=== PATIENT | female | born 2000 | race Caucasian/White ===

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

== ENCOUNTER 2022-10-20 17:41 | Emergency (ER) | payer OTHER ==
[~2022-10-20] VITALS: Ht 162.6 cm; Wt 126.6 kg
[~2022-10-20 17:41] MED LIST changes: +AUGMENTIN 875-1 EACH PO; +IBUPROFEN600 MG PO
[2022-10-21 01:07] VITALS: BP 146/92
[2022-10-21] MEDS ORDERED: PRENATAL GUMMI1 EACH PO (22:42)
== END 2022-10-21 01:07 | disposition home or self-care (01) ==
LOC: ED 17:41
DX: O20.9 Hemorrhage in early pregnancy, unspecified (principal); Z3A.01 Less than 8 weeks gestation of pregnancy; Z79.899 Other long term (current) drug therapy
CPT/HCPCS: 36415; 76801; 76817; 80053; 81003; 84702; 84703; 85025; 86900; 86901; 99284 25

== ENCOUNTER 2022-10-21 22:10 | Emergency (ER) | payer OTHER ==
[~2022-10-21] VITALS: Ht 162.6 cm; Wt 127.0 kg
--- OUTSIDE RECORDS SUMMARY | ~2022-10-21 | XMS | Continuity of Care Document ---
Demographics + + + | Address | [address] | | | [place] [address] | + + + | Preferred Language | Unknown | + + + | Marital Status | Never | + + + | Sabianist Affiliation | Unknown | + + + | Race | White | + + + | Ethnic Group | Not or | + + + Author + + + | Author | [facility] | + + + | Organization | [facility] | + + + | Address | [address] [facility] [facility] | | | [place] [address] | + + + | Phone | | + + + Care Team Providers + + + + | Care Residential Finish Carpenter Name | Role | Phone | + + + + Unavailable | Unavailable | + + + + Unavailable | Unavailable | + + + + Allergies and Intolerances + + + + + | date | description | facility | type | + + + + + | (no date) | No Known Allergies | [facility] | (unknown) | | | | | | + + + + + Encounters No information. Functional Status No information. Immunizations + + + + | date | description | facility | + + + + | 2018-05-27 00:00 | Tdap | [facility] | + + + + Medications + + + + | date | description | facility | + + + + | 2013-05-24 00:00 | ONDANSETRON HCL | [facility] | + + + + | 2013-05-24 00:00 | NAPROXEN | [facility] | + + + + | 2022-10-21 00:00 | | [facility] | | | D-METHORPHAN/PE/ACETAMINOPH | | | | EN | | + + + + | 2018-05-27 00:00 | IBUPROFEN | [facility] | + + + + | 2022-10-21 00:00 | | [facility] | | | ASPIRIN/ACETAMINOPHEN/CAFFE | | | | INE | | + + + + | 2022-10-21 00:00 | ASPIRIN/CAFFEINE | [facility] | + + + + | 2022-10-21 00:00 | IBUPROFEN | [facility] | + + + + | 2018-05-27 00:00 | AMOXICILLIN/POTASSIUM CLAV | [facility] | | | | | + + + + Problems + + + + | date | description | facility | + + + + | 2016-01-31 00:00 | Encounter for medical | [facility] | | | screening examination | | + + + + | 2018-05-27 00:00 | Dog bite of upper | [facility] | | | extremity | | + + + + | 2022-10-21 00:00 | Hemorrhage in early | [facility] | | | | | + + + + Procedures No information. Results/Labs +--------+--------+ + +---------+--------+ + | test | date | author | facility | value | unit | | | | | | | | | interpreta | | | | | | | | tion | +--------+--------+ + +---------+--------+ + + + | Result panel 1 | + + + + + + +---------+ + + | (unknown) | (no date) | (unknown) | [facility] | [facility]units | (unknown) | | | [facility] | value) | unknown) | [facility] | | | | + + + + +---------+ + + + + | Result panel 2 | + + + + + + +---------+ + + | (unknown) | (no date) | (unknown) | [facility] (no | (units | (unknown) | | | | [facility] | value) | unknown) | | | | [facility] | | | | + + + + +---------+ + + + + | Result panel 3 | + + + + + + +---------+ + + | (unknown) | (no date) | (unknown) | [facility] (no | (units | (unknown) | | | | [facility] | value) | unknown) | | | | | | [facility] | | | | + + + + +---------+ + + + + | Result panel 4 | + + + + + + +---------+ + + | (unknown) | (no date) | (unknown) | [facility] (no | (units | (unknown) | | | | [facility] | value) | unknown) | | | | | | [facility] | | | | + + + + +---------+ + + + + | Result panel 5 | + + + + + + +---------+ + + | (unknown) | (no date) | (unknown) | [facility] (no | (units | (unknown) | | | | [facility] | value) | unknown) | | | | | [facility] | | | | + + + + +---------+ + + + + | Result panel 6 | + + + + + + +---------+ + + | (unknown) | (no date) | (unknown) | [facility] (no | (units | (unknown) | | | | | [facility] | value) | unknown) | | | | | | [facility] | | | | + + + + +---------+ + + + + | Result panel 7 | + + + + + + +---------+ + + | (unknown) | (no date) | (unknown) | [facility] (no | (units | (unknown) | | [facility] | [facility] | value) | unknown) | | | | | | [facility] | | | | + + + + +---------+ + + + + | Result panel 8 | + + + + + + +---------+ + + | (unknown) | (no date) | (unknown) | [facility] (no | (units | (unknown) | | | | | [facility] | value) | unknown) | | | | | | [facility] | | | | + + + + +---------+ + + + + | Result panel 9 | + + + + + + +---------+ + + | (unknown) | (no date) | (unknown) | [facility] (no | (units | (unknown) | | | | | [facility] | value) | unknown) | | | | | | [facility] | | | | + + + + +---------+ + + + + | Result panel 10 | + + + + + + +---------+ + + | (unknown) | (no date) | (unknown) | [facility] (no | (units | (unknown) | | | | | [facility] | value) | unknown) | | | | | | [facility] | | | | + + + + +---------+ + + + + | Result panel 11 | + + + + + + +---------+ + + | (unknown) | (no date) | (unknown) | [facility] (no | (units | (unknown) | | | | | [facility] | value) | unknown) | | | | | | [facility] | | | | + + + + +---------+ + + + + | Result panel 12 | + + + + + + +---------+ + + | (unknown) | (no date) | (unknown) | [facility] (no | (units | (unknown) | | | | | [facility] | value) | unknown) | | | | | | [facility] | | | | + + + + +---------+ + + + + | Result panel 13 | + + + + + + +---------+ + + | (unknown) | (no date) | (unknown) | [facility] (no | (units | (unknown) | | | | | [facility] | value) | unknown) | | | | | | [facility] | | | | + + + + +---------+ + + + + | Result panel 14 | + + + + + + +---------+ + + | (unknown) | (no date) | (unknown) | [facility] (no | (units | (unknown) | | | | | [facility] | value) | unknown) | | | | | | [facility] | | | | + + + + +---------+ + + + + | Result panel 15 | + + + + + + +---------+ + + | (unknown) | (no date) | (unknown) | [facility] (no | (units | (unknown) | | | | | [facility] | value) | unknown) | | | | | | [facility] | | | | + + + + +---------+ + + + + | Result panel 16 | + + + + + + +---------+ + + | (unknown) | (no date) | (unknown) | [facility] | (no | (units | (unknown) | | | | | [facility] | value) | unknown) | | | | | | [facility] | | | | + + + + +---------+ + + + + | Result panel 17 | + + + + + + +---------+ + + | (unknown) | (no date) | (unknown) | [facility] (no | (units | (unknown) | | | | | [facility] | value) | unknown) | | | | | | [facility] | | | | + + + + +---------+ + + + + | Result panel 18 | + + + + + + +---------+ + + | (unknown) | (no date) | (unknown) | [facility] | (no | (units | (unknown) | | | | | [facility] | value) | unknown) | | | | | | [facility] | | | | + + + + +---------+ + + + + | Result panel 19 | + + + + + + +---------+ + + | (unknown) | (no date) | (unknown) | [facility] | (no | (units | (unknown) | | | | | [facility] | value) | unknown) | | | | | | [facility] | | | | + + + + +---------+ + + + + | Result panel 20 | + + + + + + +---------+ + + | (unknown) | (no date) | (unknown) | [facility] (no | (units | (unknown) | | | | | [facility] | value) | unknown) | | | | | | [facility] | | | | + + + + +---------+ + + + + | Result panel 21 | + + + + + + +---------+ + + | (unknown) | (no date) | (unknown) | [facility] (no | (units | (unknown) | | | | | [facility] | value) | unknown) | | | | | | [facility] | | | | + + + + +---------+ + + + + | Result panel 22 | + + + + + + +---------+ + + | (unknown) | (no date) | (unknown) | [facility] | (no | (units | (unknown) | | | | | [facility] | value) | unknown) | | | | | | [facility] | | | | + + + + +---------+ + + + + | Result panel 23 | + + + + + + +---------+ + + | (unknown) | (no date) | (unknown) | [facility] (no | (units | (unknown) | | | | | [facility] | value) | unknown) | | | | | | [facility] | | | | + + + + +---------+ + + + + | Result panel 24 | + + + + + + +---------+ + + | (unknown) | (no date) | (unknown) | [facility] (no | (units | (unknown) | | | | | [facility] | value) | unknown) | | | | | | [facility] | | | | + + + + +---------+ + + + + | Result panel 25 | + + + + + + +---------+ + + | (unknown) | (no date) | (unknown) | [facility] | (no | (units | (unknown) | | | | | [facility] | value) | unknown) | | | | | | [facility] | | | | + + + + +---------+ + + + + | Result panel 26 | + + + + + + +---------+ + + | (unknown) | (no date) | (unknown) | [facility] | (no | (units | (unknown) | | | | | [facility] | value) | unknown) | | | | | | [facility] | | | | + + + + +---------+ + + + + | Result panel 27 | + + + + + + +---------+ + + | (unknown) | (no date) | (unknown) | [facility] | (no | (units | (unknown) | | | | | [facility] | value) | unknown) | | | | | | [facility] | | | | + + + + +---------+ + + + + | Result panel 28 | + + + + + + +---------+ + + | (unknown) | (no date) | (unknown) | [facility] | (no | (units | (unknown) | | | | | [facility] | value) | unknown) | | | | | | [facility] | | | | + + + + +---------+ + + + + | Result panel 29 | + + + + + + +---------+ + + | (unknown) | (no date) | (unknown) | [facility] | (no | (units | (unknown) | | | | | [facility] | value) | unknown) | | | | | | [facility] | | | | + + + + +---------+ + + + + | Result panel 30 | + + + + + + +---------+ + + | (unknown) | (no date) | (unknown) | [facility] | (no | (units | (unknown) | | | | | [facility] | value) | unknown) | | | | | [facility] | | | | + + + + +---------+ + + + + | Result panel 31 | + + + + + + +---------+ + + | (unknown) | (no date) | (unknown) | [facility] | (no | (units | (unknown) | | | | | [facility] | value) | unknown) | | | | | | [facility] | | | | + + + + +---------+ + + + + | Result panel 32 | + + + + + + +---------+ + + | (unknown) | (no date) | (unknown) | [facility] | (no | (units | (unknown) | | | | | [facility] | value) | unknown) | | | | | | [facility] | | | | + + + + +---------+ + + + + | Result panel 33 | + + + + + + +---------+ + + | (unknown) | (no date) | (unknown) | [facility] | (no | (units | (unknown) | | | | | [facility] | value) | unknown) | | | | | | [facility] | | | | + + + + +---------+ + + + + | Result panel 34 | + + + + + + +---------+ + + | (unknown) | (no date) | (unknown) | [facility] | (no | (units | (unknown) | | | | | [facility] | value) | unknown) | | | | | [facility] | | | | + + + + +---------+ + + + + | Result panel 35 | + + + + + + +---------+ + + | (unknown) | (no date) | (unknown) | [facility] | (no | (units | (unknown) | | | | | [facility] | value) | unknown) | | | | | | [facility] | | | | + + + + +---------+ + + + + | Result panel 36 | + + + + + + +---------+ + + | (unknown) | (no date) | (unknown) | [facility] | (no | (units | (unknown) | | | | | [facility] | value) | unknown) | | | | | | [facility] | | | | + + + + +---------+ + + + + | Result panel 37 | + + + + + + +---------+ + + | (unknown) | (no date) | (unknown) | [facility] | (no | (units | (unknown) | | | | | [facility] | value) | unknown) | | | | | | [facility] | | | | + + + + +---------+ + + + + | Result panel 38 | + + + + + + +---------+ + + | (unknown) | (no date) | (unknown) | [facility] | (no | (units | (unknown) | | | | | [facility] | value) | unknown) | | | | | | [facility] | | | | + + + + +---------+ + + + + | Result panel 39 | + + + + + + +---------+ + + | (unknown) | (no date) | (unknown) | [facility] | (no | (units | (unknown) | | | | | [facility] | value) | unknown) | | | | | | [facility] | | | | + + + + +---------+ + + + + | Result panel 40 | + + + + + + +---------+ + + | (unknown) | (no date) | (unknown) | [facility] (no | (units | (unknown) | | | | | [facility] | value) | unknown) | | | | | [facility] | | | | + + + + +---------+ + + + + | Result panel 41 | + + + + + + +---------+ + + | (unknown) | (no date) | (unknown) | [facility] (no | (units | (unknown) | | | | | [facility] | value) | unknown) | | | | | [facility] | | | | + + + + +---------+ + + + + | Result panel 42 | + + + + + + +---------+ + + | (unknown) | (no date) | (unknown) | [facility] | (no | (units | (unknown) | | | | | [facility] | value) | unknown) | | | | | | [facility] | | | | + + + + +---------+ + + + + | Result panel 43 | + + + + + + +---------+ + + | (unknown) | (no date) | (unknown) | [facility] | (no | (units | (unknown) | | | | | [facility] | value) | unknown) | | | | | [facility] | | | | + + + + +---------+ + + + + | Result panel 44 | + + + + + + +---------+ + + | (unknown) | (no date) | (unknown) | [facility] | (no | (units | (unknown) | | | | | [facility] | value) | unknown) | | | | | [facility] | | | | + + + + +---------+ + + + + | Result panel 45 | + + + + + + +---------+ + + | (unknown) | (no date) | (unknown) | [facility] | (no | (units | (unknown) | | | | | [facility] | value) | unknown) | | | | | [facility] | | | | + + + + +---------+ + + + + | Result panel 46 | + + + + + + +---------+ + + | (unknown) | (no date) | (unknown) | [facility] | (no | (units | (unknown) | | | | | [facility] | value) | unknown) | | | | | [facility] | | | | + + + + +---------+ + + + + | Result panel 47 | + + + + + + +---------+ + + | (unknown) | (no date) | (unknown) | [facility] | (no | (units | (unknown) | | | | | [facility] | value) | unknown) | | | | | [facility] | | | | + + + + +---------+ + + + + | Result panel 48 | + + + + + + +---------+ + + | (unknown) | (no date) | (unknown) | [facility] | (no | (units | (unknown) | | | | | [facility] | value) | unknown) | | | | | | [facility] | | | | + + + + +---------+ + + + + | Result panel 49 | + + + + + + +---------+ + + | (unknown) | (no date) | (unknown) | [facility] | (no | (units | (unknown) | | | | | [facility] | value) | unknown) | | | | | [facility] | | | | + + + + +---------+ + + Social History No information. Vital Signs + + + +---------+ | date | measurement | value | units | + + + +---------+ | 2022-10-20 00:00 | BMI | 47.9 | kg/m2 | + + + +---------+ | 2022-10-20 00:00 | height_metric | 162.56 | cm | + + + +---------+ | 2022-10-20 00:00 | height_standard | 64 | in | + + + +---------+ | 2022-10-20 00:00 | weight_metric | 126.55 | kg | + + + +---------+ | 2022-10-20 00:00 | weight_standard | 279 | lb | + + + +---------+ | 2022-10-21 00:00 | BP_diastolic | 92 | mmHg | + + + +---------+ | 2022-10-21 00:00 | BP_systolic | 146 | mmHg | + + + +---------+ | 2022-10-21 00:00 | heart_rate | 96 | /min | + + + +---------+ | 2022-10-21 00:00 | o2_saturation | 100 | % | + + + +---------+ | 2022-10-21 00:00 | respiration_rate | 17 | /min | + + + +---------+ | 2022-10-21 00:00 | temperature_metric | 36.67 | C | | | | | | + + + +---------+ | 2022-10-21 00:00 | | 98 | F | | | temperature_standar | | | | | d | | | + + + +---------+"
--- OUTSIDE RECORDS SUMMARY | ~2022-10-21 | XMS | Continuity of Care Document ---
Demographics + + + | Address | [address] | | | [place] [address] | + + + | Preferred Language | Unknown | + + + | Marital Status | Never | + + + | Druze Affiliation | Unknown | + + + | Race | White | + + + | Ethnic Group | Not or | + + + Author + + + | Author | [facility] | + + + | Organization | [facility] | + + + | Address | [address] [facility] | | | [place] [address] | + + + | Phone | | + + + Care Team Providers + + + + | Care Passport Application Examiner Name | Role | Phone | + [...] + | 2018-05-27 00:00 | Tdap | [facility] | + + + + Medications + + + + | date | description | facility | + + + + | 2013-05-24 00:00 | ONDANSETRON HCL | [facility] | + + + + | 2013-05-24 00:00 | NAPROXEN | [facility] | + + + + | 2022-10-21 00:00 | | [facility] | | | D-METHORPHAN/PE/ACETAMINOPH | | | | EN | | + + + + | 2018-05-27 00:00 | IBUPROFEN | [facility] | + + + + | 2022-10-21 00:00 | | [facility] | | | ASPIRIN/ACETAMINOPHEN/CAFFE | | | | INE | | + + + + | 2022-10-21 00:00 | ASPIRIN/CAFFEINE | [facility] | + + + + | 2022-10-21 00:00 | IBUPROFEN | [facility] | + + + + | 2018-05-27 00:00 | AMOXICILLIN/POTASSIUM CLAV | [facility] | | | | | + + + + Problems + + + + | date | description | facility | + + + + | 2016-01-31 00:00 | Encounter for medical | [facility] | | | screening examination | | + + + + | 2018-05-27 00:00 | Dog bite of upper | [facility] | | | extremity | | + + + + | 2022-10-21 00:00 | Hemorrhage in early | [facility] | | | | | + + [...]
--- OUTSIDE RECORDS SUMMARY | 2022-10-21 22:18 | XMS ---
PreManage Notification: JOSE MEYERS Security Supervisor Cartography Events No recent Security Events currently on file CRITERIA MET - [facility] - 2 Visits in 30 Days CARE PROVIDERS SABRINA MEDINA Physician Current PHONE: Unknown Teresa has no Care Guidelines for this patient. EDontae VISIT COUNT (12 MO.) 2 [facility] TOTAL 2 NOTE: Visits indicate total known visits. ED/UCC VISIT TRACKING (12 MO.) 10/21/2022 22:[address] [facility] [place] TYPE: Emergency COMPLAINT: - ABD PAIN 10/20/2022 17:44 [facility] [place] TYPE: Emergency COMPLAINT: - ABD PAIN, NAUSEA, DIZZINESS, SPOTTING, 5 WKS PG INPATIENT VISIT TRACKING (12 MO.) No inpatient visits to display in this time frame [email or web address]
[2022-10-21] MEDS ORDERED: PRENATAL GUMMI1 EACH PO (22:42)
[2022-10-22 00:39] VITALS: BP 138/90
== END 2022-10-22 00:40 | disposition home or self-care (01) ==
LOC: ED 22:10
DX: O99.891 Other specified diseases and conditions complicating pregnancy (principal); R10.9 Unspecified abdominal pain; Z3A.01 Less than 8 weeks gestation of pregnancy; Z79.899 Other long term (current) drug therapy
CPT/HCPCS: 36415; 84484; 84702; 85025; 96372; 99284; A9270

== ENCOUNTER 2024-07-30 04:49 | Inpatient (IN) | payer OTHER ==
[~2024-07-30] VITALS: Ht 162.6 cm; Wt 141.5 kg
[~2024-07-30 04:49] MED LIST changes: +HYDROCODON-ACE1 EA10 PO; +MOTRIN IB200 MG PO; +ONDANSETRON ODT8 MG SL; +OXYCODONE HCL5 MG PO; +PRENATAL GUMMI1 EACH PO; +TYLENOL EXTRA500 MG PO
[2024-07-30] MEDS ORDERED: LACTATED RINGER'S 1,000 ML IV PRN ×2 (05:00→18:30)
[2024-07-30] MEDS ORDERED: CALCIUM CARBONATE 500 MG CHEW PO PRN (05:00)
[2024-07-30] MEDS ORDERED: MAGNESIUM HYDROXIDE/AL HYDROX 30 ML CUP PO PRN (05:00)
[2024-07-30] MEDS ORDERED: OXYTOCIN/0.9 % SODIUM CHLORIDE 30 UNITS/500 ML BAG IV SCH (05:00)
[2024-07-30 05:20] LABS: AMPHETAMINES, URINE NEGATIVE (NEGATIVE); BARBITURATES, URINE NEGATIVE (NEGATIVE); BENZODIAZEPINE, URINE NEGATIVE (NEGATIVE); BUPRENORPHINE, URINE NEGATIVE (NEGATIVE); CANNABINOID, URINE NEGATIVE (NEGATIVE); COCAINE, URINE NEGATIVE (NEGATIVE); ECSTASY, URINE NEGATIVE (NEGATIVE); FENTANYL, URINE NEGATIVE (NEGATIVE); METHADONE, URINE NEGATIVE (NEGATIVE); OPIATES, URINE NEGATIVE (NEGATIVE); OXYCODONE, URINE NEGATIVE (NEGATIVE); PHENCYCLIDINE, URINE NEGATIVE (NEGATIVE)
[2024-07-30 05:33] LABS: HEMATOCRIT 35.1 % (35.0-50.0); HEMOGLOBIN 12.2 g/dL (12.0-18.0); MCH 29.6 (27-36); MCHC 34.7 g/dl (30-36); MCV 85.2 fl (81-99); RBC 4.12 M/ul (4.3-5.7); RDW 13.3 (10.5-15.0)
[2024-07-30 06:18] LABS: ABO A; ANTIBODY SCREEN NEGATIVE; IS CROSSMATCH COMPATIBLE; RH POSITIVE
[2024-07-30 06:35] VITALS: BP 138/96
[2024-07-30] MEDS ORDERED: ROPIVACAINE 0.2% 200 ML BAG ONE (08:25)
[2024-07-30] MEDS ORDERED: fentaNYL citrate 100 MCG/2 ML VIAL ONE (08:25)
[2024-07-30] MEDS ORDERED: LACTATED RINGER'S 2,000 ML IV ONE (09:00)
[2024-07-30] MEDS ORDERED: ROPIVACAINE 0.2% 200 ML BAG EPIDURAL SCH (09:00)
[2024-07-30] MEDS ORDERED: ePHEDrine sulfate 5 MG/ML SYRINGE IV PRN (09:00)
[2024-07-30] MEDS ORDERED: LACTATED RINGER'S 500 ML IV PRN (09:00)
[2024-07-30] MEDS ORDERED: LIDOCAINE HCL 2% 5 ML SDV ONE ×2 (14:10→19:00)
[2024-07-30] MEDS ORDERED: dexmedeTOMIDine HCl 200 MCG/2 ML VIAL ONE ×2 (14:10→19:40)
[2024-07-30 14:12] LABS: HEMATOCRIT 35.3 % (35.0-50.0); HEMOGLOBIN 12.2 g/dL (12.0-18.0); MCH 29.4 (27-36); MCHC 34.5 g/dl (30-36); MCV 85.4 fl (81-99); RBC 4.13 M/ul (4.3-5.7); RDW 13.9 (10.5-15.0)
[2024-07-30] MEDS ORDERED: OXYTOCIN/0.9 % SODIUM CHLORIDE 500 ML IV SCH ×2 (14:15→20:00)
[2024-07-30 14:21] LABS: CREATININE, RANDOM URINE 25.94 mg/dL (NOT ESTABLISHED); PROTEIN/CREATININE RATIO 0.65 mg/mg (0.010-0.107)
[2024-07-30 14:29] LABS: ALBUMIN 2.4 g/dL (3.4-5.0); ALBUMIN/GLOBULIN RATIO 0.59 (1.1-2.4); ANION GAP 13.8 (7-21); BILIRUBIN, TOTAL 0.2 mg/dL (0.2-1.0); BUN/CREATININE RATIO 11.94 (6.0-28.6); CALCIUM 8.6 mg/dL (8.5-10.1); CREATININE, SERUM 0.67 mg/dL (0.55-1.02); POTASSIUM 3.8 mmol/L (3.5-5.1); PROTEIN, TOTAL 6.5 g/dL (6.4-8.2)
[2024-07-30] MEDS ORDERED: ondansetron HCL 4 MG/2 ML VIAL IV PRN ×3 (16:15→20:45)
[2024-07-30] MEDS ORDERED: CEFAZOLIN SODIUM 3 GM/30 ML SYR IV SCH (18:18)
[2024-07-30] MEDS ORDERED: AZITHROMYCIN 500 MG in DEXTROSE 5% 250 ML IV ONE (18:30)
[2024-07-30] MEDS ORDERED: SOD+POT BICARB/CITRIC ACID 2 EA TABLET.EFF PO ONE (18:30)
[2024-07-30] MEDS ORDERED: LIDOCAINE 2% W/ EPI 1:200,000 20 ML SDV ONE (18:34)
[2024-07-30] MEDS ORDERED: SODIUM CHLORIDE 0.9% 20 ML IV ONE ×2 (18:35→19:41)
[2024-07-30] MEDS ORDERED: ePHEDrine sulfate 50 MG/ML AMP ONE (18:35)
[2024-07-30] MEDS ORDERED: ondansetron HCL 4 MG/2 ML VIAL ONE (18:44)
[2024-07-30] MEDS ORDERED: OXYTOCIN 10 UNITS/ML VIAL ONE (19:00)
[2024-07-30] MEDS ORDERED: DEXAMETHASONE SOD PHOS 4 MG/ML VIAL ONE ×2 (19:08→20:15)
[2024-07-30] MEDS ORDERED: droPERidol 5 MG/2 ML VIAL ONE (19:26)
[2024-07-30] MEDS ORDERED: propofoL 200 MG/20 ML VIAL ONE (19:36)
[2024-07-30] MEDS ORDERED: Ropivacaine HCl 0.5% 30 ML VIAL ONE (19:40)
[2024-07-30] MEDS ORDERED: SODIUM CHLORIDE 0.9% 60 ML IV ONE (19:40)
[2024-07-30] MEDS ORDERED: HYDROCODONE/ACETA 5/325 TAB PO PRN (20:00)
[2024-07-30] MEDS ORDERED: PROCHLORPERAZINE EDISYLATE 10 MG/2 ML VIAL IV PRN (20:00)
[2024-07-30] MEDS ORDERED: OXYCODONE HCL 5 MG TAB PO PRN (20:00)
[2024-07-30] MEDS ORDERED: PROMETHAZINE HCL 25 MG SUPP PR PRN (20:00)
[2024-07-30] MEDS ORDERED: OXYCODONE/APAP 5/325 TAB PO PRN (20:00)
[2024-07-30] MEDS ORDERED: bisacodyL 10 MG SUPP PR PRN (20:00)
[2024-07-30] MEDS ORDERED: PROMETHAZINE HCL 25 MG TAB PO PRN (20:00)
[2024-07-30] MEDS ORDERED: METOCLOPRAMIDE HCL 10 MG/2 ML SDV IV PRN (20:00)
[2024-07-30] MEDS ORDERED: LACTATED RINGER'S 1,000 ML IV SCH (20:06)
[2024-07-30] MEDS ORDERED: ACETAMINOPHEN 1,000 MG/100 ML VIAL ONE (20:15)
[2024-07-30] MEDS ORDERED: MORPHINE SULFATE 1 MG/ML VIAL ONE (20:17)
--- NOTE | 2024-07-30 20:33 | NUR ---
07/30/242032 Angela Khalil LE 2021: PT ARRIVES TO [facility] ROOM 106 FOR RECOVERY. PT'S MOM AND SPOUSE IN THE ROOM AT BEDSIDE. MACI 2024: [facility] RN PLACES BABY ON MOM'S CHEST. [facility]
[2024-07-30 20:43] VITALS: BP 135/71
[2024-07-30] MEDS ORDERED: HYDROmorphone HCL 1 MG/ML SYR IV PRN (20:45)
[2024-07-30] MEDS ORDERED: MORPHINE SULFATE 4 MG/ML VIAL IV PRN (20:45)
[2024-07-30] MEDS ORDERED: NALOXONE HCL 0.4 MG SYR IV PRN ×2 (20:45)
[2024-07-30] MEDS ORDERED: IBLOOD GLUCOSE TEST STRIP 1 EA TEST VI PRN (20:45)
[2024-07-30] MEDS ORDERED: KETOROLAC TROMETHAMINE 30 MG/ML VIAL IV PRN (20:45)
[2024-07-30] MEDS ORDERED: fentaNYL citrate 50 MCG/ML SDV IV PRN (20:45)
[2024-07-30] MEDS ORDERED: SIMETHICONE 80 MG CHEW PO SCH (21:00)
[2024-07-30] MEDS ORDERED: SENNOSIDES/DOCUSATE 1 EA TAB PO SCH (21:00)
[2024-07-31] MEDS ORDERED: IBUPROFEN 600 MG TAB PO SCH (02:00)
[2024-07-31] MEDS ORDERED: LACTATED RINGER'S 1,000 ML IV SCH (05:00)
[2024-07-31 08:01] LABS: BASOPHILS 0.3 % (0-2); HEMATOCRIT 30.7 % (35.0-50.0); HEMOGLOBIN 10.4 g/dL (12.0-18.0); LYMPHOCYTES 4.9 % (24-44); MCH 29.2 (27-36); MCHC 33.9 g/dl (30-36); NEUTROPHILS 88.8 % (39-80); PLATELET COUNT 189 K/uL (140-440); RBC 3.57 M/ul (4.3-5.7); RDW 13.3 (10.5-15.0)
--- NOTE | 2024-07-31 09:00 | OR ---
[facility] [address] [place] [place], [place] [address] Signed DATE OF OPERATION: 07/30/2024 SURGEON: Sana Arnold MD PREOPERATIVE DIAGNOSES: 1. Intrauterine at 39 and 5/7 weeks. 2. Arrest of first stage of labor. POSTOPERATIVE DIAGNOSES: 1. Intrauterine at 39 and 5/7 weeks. 2. Arrest of first stage of labor. PROCEDURE: Primary low transverse repeat section. FINDINGS: Clear fluid, vigorous male, Apgars of 9 and 10, weight of 8 pound 7 ounces. Normal uterus tubes and ovaries. ANESTHESIA: Epidural. LESSON INSTRUCTOR: None. IV FLUIDS: 1 liter of crystalloid. QBL: 520 mL. URINE OUTPUT: 50 mL. DRAINS: Caldwell to gravity. SPECIMENS: None apparent. Electronically Signed By: SANA ARNOLD MD 07/31/24 0900 PATIENT NAME: JOSE MEYERS OPERATIVE REPORT DATE OF : 89 REPORT #: [id number] PHYSICIAN: SANA ARNOLD MD PCP: SABRINA MEDINA PAC REPORT IS CONFIDENTIAL AND NOT TO BE RELEASED WITHOUT AUTHORIZATION [facility] [address] [place], [place] [address] Signed COMPLICATIONS: None apparent. COUNTS: Correct x2. TECHNIQUE IN DETAIL: With informed consent, the patient was taken to the operating room. Her epidural was bolused. She was given intravenous antibiotics per protocol. She was given 3 g of Ancef and 500 mg of azithromycin. She was prepped and draped in normal fashion. Time out was then performed per protocol. Also SCDs were placed on her lower extremities. Under adequate epidural analgesia, an approximately 8 to 10-inch Pfannenstiel skin incision was made and sharp dissection was carried down to the layer of the rectus fascia, which was nicked in the midline. This rectus iraida was enlarged bilaterally using sharp dissection and the rectus muscles were taken down from the fascia using combination of blunt and sharp dissection, this was done both superiorly and inferiorly. The rectus muscles were in the midline at the most superior aspect and the separation was carried down inferiorly using sharp dissection and paying careful attention to the location of the urinary bladder. The peritoneum was identified and grasped with hemostats and elevated and carefully incised with Metzenbaum scissors. The peritoneal opening was then enlarged with combination of sharp and blunt dissection. A bladder blade was then inserted and a low transverse uterine incision was made with scalpel. Careful dissection/incision with scalpel was made. Rupture of membranes confirmed entry into the uterine cavity. Uterine incision was then enlarged with blunt dissection in a superior and inferior direction. The surgeon's hand was placed into the lower uterine segment. head was elevated and delivered easily with fundal pressure. There was nuchal cord x1, which is manually reduced. The shoulder was delivered easily. After approximately 10 seconds, cord was clamped x2 and cut, baby was handed to the transition team. The placenta delivered intact with a three-vessel cord using gentle retraction and fundal massage. Good uterine tone was achieved with intravenous oxytocin. Uterus was externalized. The uterine cavity was curetted with laparotomy sponges. The hysterotomy site was closed with 0 Monocryl in a running locked fashion. A second imbricating layer with 0 Monocryl was placed also in a running fashion. Good hemostasis of the uterine incision was noted. The posterior cul-de-sac was cleared of all clots. The uterus was returned to the pelvis. The left and right paracolic gutters were cleared of clots and blood. The uterine incision was again inspected and found to be hemostatic again. The rectus muscles and peritoneum were reapproximated using 2-0 chromic in a running Electronically Signed By: SANA ARNOLD MD 07/31/24 0900 PATIENT NAME: JOSE MEYERS OPERATIVE REPORT DATE OF : 89 REPORT #: [id number] PHYSICIAN: SANA ARNOLD MD PCP: SABRINA MEDINA PAC REPORT IS CONFIDENTIAL AND NOT TO BE RELEASED WITHOUT AUTHORIZATION [facility] [address] [place], [place] [address] Signed fashion. The rectus muscle bellies were inspected and found to be hemostatic. The rectus fascia was reapproximated with 0 PDS in a running fashion. Superficial incision was irrigated and rendered hemostatic with the Bovie. Subcutaneous tissue was reapproximated with 2-0 chromic in a running fashion. Skin incision was reapproximated with the 4-0 Quill suture. Steri-Strips and Dermabond were placed. Uterus was expressed of all clots. DISPOSITION: The patient was taken to the recovery room in stable condition. Sana Arnold MD BB/MODL /[id number] Copies: ~ Electronically Signed By: SANA ARNOLD MD 07/31/24 0900 PATIENT NAME: JOSE MEYERS OPERATIVE REPORT DATE OF : 89 REPORT #: [id number] PHYSICIAN: SANA ARNOLD MD PCP: SABRINA MEDINA PAC REPORT IS CONFIDENTIAL AND NOT TO BE RELEASED WITHOUT AUTHORIZATION
[2024-07-31] MEDS ORDERED: ENOXAPARIN SODIUM 40 MG/0.4 ML SYR SUB-Q SCH (12:35)
== END 2024-08-02 17:05 | disposition home or self-care (01) | DRG 788 ==
LOC: FBC 04:49
PROVIDERS: Advanced Practice Midwife; ADMIT Obstetrics & Gynecology; ATTEND Obstetrics & Gynecology
PROC: 10D00Z1 Extraction of Products of Conception, Low, Open Approach (ICD-10-PCS; principal; 2024-07-30 19:00)
DX: O62.1 Secondary uterine inertia (principal); Z37.0 Single live birth; Z3A.39 39 weeks gestation of pregnancy; Z86.16 Personal history of COVID-19; Z88.5 Allergy status to narcotic agent; O99.214 Obesity complicating childbirth; O99.344 Other mental disorders complicating childbirth; E66.01 Morbid (severe) obesity due to excess calories; F41.9 Anxiety disorder, unspecified; Z79.899 Other long term (current) drug therapy; O69.81X0 Labor and delivery complicated by cord around neck, without compression, not applicable or unspecified
CPT/HCPCS: 01961; 36415; 76942; 80053; 80307; 82565; 82570; 83615; 84156; 84550; 85025; 85027; 85060; 86850; 86900; 86901; 86922; A9270; J0131; J0456; J0690; J1100; J1650; J1790; J2003; J2274; J2405; J2590; J2704; J2795; J3010; J7060; J7121